=== PATIENT | female | born 1980 | race Caucasian/White ===

== ENCOUNTER 2017-07-08 11:50 | Outpatient (CLI) | payer OTHER, MEDICARE ==
--- NOTE | 2017-07-08 13:20 | RAD ---
PA AND LATERAL VIEWS OF CHEST: Date: 07/08/17 HISTORY: Chest pain. FINDINGS: Comparison made with exam of 06/15/14. The heart size is normal. The lungs are well expanded without focal areas of consolidation, pneumotho rax, or pleural effusions. There is continued elevation of the right hemidiaphragm. No acute osseous abnormalities are seen. IMPRESSION: No radiographic evidence of acute cardiopulmonary process. POS: [facility]
== END 2017-07-08 11:51 | disposition home or self-care (01) ==
LOC: RAD-FRANK 11:50
PROVIDERS: ATTEND Nurse Practitioner Family
DX: R07.9 Chest pain, unspecified (principal)
CPT/HCPCS: 71020

== ENCOUNTER 2021-01-26 07:47 | Outpatient (CLI) | payer BC | END 2021-01-26 07:48 | disposition home or self-care (01) | LOC: CT 07:47 | PROVIDERS: ATTEND Internal Medicine Hematology & Oncology | DX: C18.9 Malignant neoplasm of colon, unspecified (principal); C80.1 Malignant (primary) neoplasm, unspecified; N83.8 Other noninflammatory disorders of ovary, fallopian tube and broad ligament | CPT/HCPCS: 74177 ==